=== PATIENT | female | born 1970 | race Caucasian/White ===

== ENCOUNTER 2016-04-14 08:56 | Outpatient (CLI) | payer MEDICARE, MEDICAID ==
[2016-04-14] MEDS ORDERED: diphenhydrAMINE 25 MG Cap PO ONE (09:00)
[2016-04-14] MEDS ORDERED: Acetaminophen 325 MG Tab PO ONE (09:00)
[2016-04-14] MEDS ORDERED: methylPREDNISolone Sodium Succinate 40 MG/1 ML SDV IV ONE (09:00)
[2016-04-14] MEDS ORDERED: Sodium Chloride 0.9% 50 ML IV PRN (09:15)
[2016-04-14 09:17] VITALS: BP 135/71
== END 2016-04-14 11:29 | disposition home or self-care (01) ==
LOC: VM.ACU 08:56
PROVIDERS: ATTEND Physician Assistant Medical
DX: L40.50 Arthropathic psoriasis, unspecified (principal)
CPT/HCPCS: A9270; J1745; J2920; J7050; 96375; 96413; 96415